=== PATIENT | female | born 2000 | race Caucasian/White ===

== ENCOUNTER 2024-11-20 22:28 | Emergency (ER) | payer OTHER ==
[~2024-11-20] VITALS: Ht 160 cm; Wt 83.0 kg
[2024-11-20 22:36] VITALS: BP 128/76
[2024-11-20] MEDS ORDERED: VIBRAMYCIN100 MG PO (22:44)
[2024-11-20] MEDS ORDERED: CLOBETASOL PROPIONATE 30 GM TUBE T ONE (22:45)
== END 2024-11-20 23:00 | disposition home or self-care (01) ==
LOC: ED 22:28
DX: S50.861A Insect bite (nonvenomous) of right forearm, initial encounter (principal); S90.861A Insect bite (nonvenomous), right foot, initial encounter; W57.XXXA Bitten or stung by nonvenomous insect and other nonvenomous arthropods, initial encounter; Y93.89 Activity, other specified; Y92.89 Other specified places as the place of occurrence of the external cause; Y99.8 Other external cause status

== ENCOUNTER 2025-01-20 11:59 | Emergency (ER) | payer OTHER ==
[~2025-01-20] VITALS: Ht 160 cm; Wt 83.0 kg
[~2025-01-20 11:59] MED LIST: VIBRAMYCIN100 MG PO
[2025-01-20 12:22] VITALS: BP 127/68
[2025-01-20] MEDS ORDERED: ACETAMINOPHEN 325 MG TAB PO ONE (12:30)
[2025-01-20] MEDS ORDERED: NAPROSYN500 MG PO (14:16)
== END 2025-01-20 14:06 | disposition home or self-care (01) ==
LOC: ED 11:59
DX: S93.401A Sprain of unspecified ligament of right ankle, initial encounter (principal); W18.09XA Striking against other object with subsequent fall, initial encounter; Y93.89 Activity, other specified; Y92.89 Other specified places as the place of occurrence of the external cause; Y99.8 Other external cause status